=== PATIENT | male | born 1935 | race Caucasian/White ===

== ENCOUNTER 2017-06-29 14:07 | Inpatient (IN) | payer OTHER ==
[~2017-06-29] VITALS: Ht 170.2 cm; Wt 79.8 kg
--- NOTE | 2017-06-29 14:16 | NUR ---
Patient BIBA ACLS, transferred to bed 12. RN evaluating patient at bedside.
[2017-06-29 14:17] VITALS: BP 149/61
--- NOTE | 2017-06-29 14:20 | NUR ---
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 PT IS AOX4, RR ARE EVEN AND UNLABORED. ER MD AWARE OF PT STATUS. NAD AT THIS TIME. WILL CONTINUE TO MONITOR.
[2017-06-29] MEDS ORDERED: APID SUBQ (14:35)
[2017-06-29] MEDS ORDERED: VITA1TAB44 PO (14:35)
[2017-06-29] MEDS ORDERED: TRA200 PO (14:35)
[2017-06-29] MEDS ORDERED: ASPI81CT89 PO (14:35)
[2017-06-29] MEDS ORDERED: ISOS20TA13 PO (14:35)
[2017-06-29] MEDS ORDERED: GABA100C PO (14:35)
[2017-06-29] MEDS ORDERED: SEVE400T PO (14:35)
[2017-06-29] MEDS ORDERED: HYDR100T79 PO (14:35)
[2017-06-29] MEDS ORDERED: PHO667 PO (14:35)
[2017-06-29] MEDS ORDERED: LANTUS SUBQ ×2 (14:35)
[2017-06-29] MEDS ORDERED: PRAV40TA1 PO (14:35)
[2017-06-29] MEDS ORDERED: CLOP75TA26 PO (14:35)
[2017-06-29] MEDS ORDERED: ASPIRIN 325 MG TAB PO ONE (14:50)
[2017-06-29 15:49] LABS: BASOPHILS # (AUTO) 0.1 K/uL (0.00-0.22); BASOPHILS % (AUTO) 1.6 % (0.0-2.0); EOSINOPHILS # (AUTO) 0.1 K/uL (0-0.4); EOSINOPHILS % (AUTO) 1.6 % (0.0-4.0); HEMATOCRIT 30.5 % (36-52); HEMOGLOBIN 9.7 g/dL (12.0-18.0); LYMPHOCYTES # (AUTO) 0.7 K/uL (2.0-11.5); LYMPHOCYTES % (AUTO) 11.6 % (20.5-51.1); MEAN CORPUSCULAR HEMOGLOBIN 34 pg (27-31); MEAN CORPUSCULAR HGB CONC 32 g/dL (33-37); MEAN CORPUSCULAR VOLUME 107 fL (80-94); MONOCYTES # (AUTO) 0.5 K/uL (0.8-1.0); MONOCYTES % (AUTO) 9.2 % (1.7-9.3); NEUTROPHILS # (AUTO) 4.3 K/uL (1.8-7.7); PLATELET COUNT (AUTO) 118 K/uL (140-450); RED BLOOD CELL COUNT(AUTO) 2.86 MIL/uL (4.20-6.10); RED CELL DISTRIBUTION WIDTH 17.1 % (11.6-13.7); WHITE BLOOD COUNT (AUTO) 5.7 K/uL (4.8-10.8)
[2017-06-29 16:11] LABS: ALBUMIN 3.2 g/dL (3.4-5.0); ANION GAP 9.8 (8-16); ASPARTATE AMINOTRANSFERASE 21 U/L (15-37); CARBON DIOXIDE 32.9 mmol/L (21-32); CHLORIDE 102 mmol/L (98-107); GLUCOSE 104 mg/dL (74-106); LIPASE 64 U/L (73-393); POTASSIUM 3.7 mmol/L (3.5-5.1); SODIUM SERUM 141 mmol/L (136-145); TOTAL BILIRUBIN 0.7 mg/dL (0.0-1.0); UREA NITROGEN, BLOOD 27 mg/dL (7-18)
[2017-06-29 16:15] LABS: CREATININE 5.8 mg/dL (0.7-1.3)
--- NOTE | 2017-06-29 16:27 | NUR ---
pt laying supine in [facility] with no complaints. nad. will continue to monitor.
[2017-06-29] MEDS ORDERED: NITROGLYCERIN 0.4 MG TAB SL ONE (16:50)
--- NOTE | 2017-06-29 17:38 | NUR ---
pt denies any cp, with no complaints. pt is aox4, rr are even and unlabored. nad. pt denies any pain at this time.
[2017-06-29 18:02] LABS: CREATINE KINASE MB 2.8 ng/mL (0-3.6)
--- NOTE | 2017-06-29 18:40 | NUR ---
Patient will be admitted to care of Shawn. Admited to Tele. Will go to room 115. Belongings list completed. bedside report to
--- NOTE | 2017-06-29 18:45 | NUR ---
RECEIVED PT FROM ER AT 1835. PLACED PT ON 2L O2 VIA NC. PT DENIES PAIN AT THIS TIME. PT HAS DIALYSIS SHUNT ON LEFT ARM. NO BP SIGN ON LEFT ARM POSTED. PT WAS PUT ON TELE. MRSA SWAB COLLECT. ORIENTED PT TO ROOM. ORDERED DINNER FOR THE PT. VITALS TAKEN, WITHIN NORMAL LIMIT. NO S/S OF DISTRESS NOTED.
--- NOTE | 2017-06-29 19:40 | NUR ---
RECEIVED REPORT FROM DAY SHIFT RN, PATIENT RESTING IN BED EATING DINNER. NO S/S OF DISTRESS NOTED, RESPIRATION EVEN AND UNLABORED, ON O2 NC 2L. IV ON RT AC 20G PATENT AND INTACT, AV SHUNT ON LT FOREARM BRUIT AND THRILL. CALL LIGHT WITHIN REACH, SAFETY MEASURE ENSURED, WILL CONTINUE TO MONITOR.
--- NOTE | 2017-06-29 19:40 | NUR ---
REPORT GIVEN TO [employer] COATING EQUIPMENT TENDER RN. PT IN STABLE CONDITION.
[2017-06-29 20:00] VITALS: BP 160/70
[2017-06-29] MEDS ORDERED: NITROGLYCERIN 0.4 MG TAB SL PRN (22:25)
[2017-06-29] MEDS ORDERED: MORPHINE SULFATE 2 MG/ML SYR IVP PRN (22:25)
--- NOTE | 2017-06-29 22:40 | NUR ---
NO CHANGE IN CONDITION, PATIENT IS SLEEPING, NO S/S OF DISTRESS NOTED, RESPIRATION EVEN AND UNLABORED, CALL LIGHT WITHIN REACH, SAFETY MEASURE ENSURED, WILL CONTINUE TO MONITOR.
[2017-06-29] MEDS ORDERED: INSULIN LISPRO SLIDING SCALE 100 UNITS/ML VIAL SUBQ PRN (23:10)
[2017-06-29] MEDS ORDERED: DEXTROSE 50% 50 ML SYR IVP PRN (23:10)
[2017-06-30] VITALS: BP 148/68
--- NOTE | 2017-06-30 00:04 | NUR ---
TROPONIN 0.230, WILL INFORM DR. MOULTON.
--- NOTE | 2017-06-30 00:12 | NUR ---
NO CHANGE IN CONDITION, VITAL SIGNS STABLE, NO S/S OF DISTRESS NOTED, RESPIRATION EVEN AND UNLABORED, CALL LIGHT WITHIN REACH, SAFETY MEASURE ENSURED, WILL CONTINUE TO MONITOR. Addendum: 06/30/17 at 0247 by Rachel Mitchell RN MADE DR. MOULTON AWARE OF TROPONIN 0.230, NO NEW ORDER RECEIVED AT THIS TIME.
--- NOTE | 2017-06-30 02:35 | NUR ---
PATIENT IS SLEEPING, NO S/S OF DISTRESS NOTED, RESPIRATION EVEN AND UNLABORED, CALL LIGHT WITHIN REACH, SAFETY MEASURE ENSURED, WILL CONTINUE TO MONITOR.
[2017-06-30 03:59] VITALS: BP 153/70
--- NOTE | 2017-06-30 04:05 | NUR ---
PATIENT WAS SLEEPING, NO S/S OF DISTRESS NOTED, RESPIRATION EVEN AND UNLABORED, EASY TO AROUSE, VITAL SIGNS STABLE, CALL LIGHT WITHIN REACH, SAFETY MEASURE ENSURED, WILL CONTINUE TO MONITOR.
--- NOTE | 2017-06-30 06:50 | NUR ---
NOTED PATIENT COUGH INTERMITTENTLY, DR. MOULTON IS AWARE, NO ORDER RECEIVED AT THIS TIME.
[2017-06-30] MEDS: BLOOD GLUCOSE MONITORING 1 DEV DEV FS SCH ×4 (07:10→20:41)
--- NOTE | 2017-06-30 07:12 | NUR ---
ENDORSED PLAN OF CARE TO DAY SHIFT NURSE, PATIENT IS IN STABLE CONDITION.
--- NOTE | 2017-06-30 07:15 | NUR ---
RECEIVED PT IN BED. AWAKE. ALERT ORIENTED X4. NO SOB NOTED. ON 02 AT 2LPM NC. DENIES ANY PAIN OR DISCOMFORT AT THIS TIME. PT AMBULATORY WITH WALKER. SAFETY PRECAUTION IN PLACE. CALL LIGHT WITHIN REACH. DR. MOULTON CAME TO SEE PT.
[2017-06-30 08:00] VITALS: BP 151/70
--- NOTE | 2017-06-30 08:51 | NUR ---
PATIENT HAS BEEN SCREENED AND CATEGORIZED MODERATE NUTRITION RISK. PATIENT WILL BE SEEN WITHIN 3-5 DAYS OF ADMISSION. 07/01/17-07/03/[address]
[2017-06-30] MEDS ORDERED: INSULIN GLARGINE SUBQ SCH ×2 (09:00→21:00)
[2017-06-30] MEDS ORDERED: NON-FORMULARY ITEM (Hydralazine HCl (Hydralazine Hydrochloride) 50 MG) PO SCH (09:00)
[2017-06-30] MEDS ORDERED: NON-FORMULARY ITEM (Pravastatin Sodium* (Pravachol*) 40 MG) PO SCH (09:00)
[2017-06-30] MEDS ORDERED: INSULIN GLULISINE 8 UNIT SUBQ SCH (09:00)
[2017-06-30] MEDS ORDERED: SEVELAMER HCL 800 MG PO SCH (09:00)
--- NOTE | 2017-06-30 09:28 | NUR ---
CALLED DR. MOULTON [phone] MADE AWARE OF LATEST TROPONIN OF 0.228 AND MADE AWARE OF PLATELET RESULT YESTERDAY OF 118 AND THE DUE HEPARIN ORDER FOR 0900 TODAY, PER DR. MOULTON STILL OK TO GIVE LOVENOX ORDERED.
[2017-06-30] MEDS: ISOSORBIDE DINITRATE 20 MG TAB PO SCH (09:35)
[2017-06-30] MEDS: ASPIRIN 325 MG TAB PO SCH (09:35)
[2017-06-30] MEDS: GABAPENTIN 100 MG CAP PO SCH ×3 (09:36→16:32)
[2017-06-30] MEDS: METOPROLOL 25 MG TAB PO SCH ×2 (09:36→20:36)
[2017-06-30] MEDS: hydrALAZINE 25 MG TAB PO SCH (09:36)
[2017-06-30] MEDS: VIT-B COMP/VIT-C/FOLIC ACID 1 TAB PO SCH (09:36)
[2017-06-30] MEDS: CALCIUM ACETATE 667 MG TAB PO SCH ×3 (09:36→16:32)
[2017-06-30] MEDS: ENOXAPARIN 30 MG/0.3 ML SYR SUBQ SCH (09:40)
[2017-06-30] MEDS: INSULIN DETEMIR 100 UNITS/ML 10 ML VIAL SUBQ SCH (09:46)
[2017-06-30 11:34] VITALS: BP 146/73
[2017-06-30] MEDS: SEVELAMER CARBONATE 800 MG TAB PO SCH ×2 (12:21→16:32)
[2017-06-30 15:48] VITALS: BP 132/62
--- NOTE | 2017-06-30 15:51 | NUR ---
RECEIVED A CALL FROM [employer] REGARDING MEDICATION ISORDIL THAT IT SHOULD BE TAKEN BID AND NOT JUST ONCE A DAY PER ORDERED. CLARIFIED WITH PT. PER PT REPORT HE JUST TAKES IT ONCE A DAY. CALLED PHARMACIST SPOKE WITH JE AND MADE AWARE.
[2017-06-30] MEDS: INSULIN LISPRO 100 UNITS/ML VIAL SUBQ SCH (16:38)
--- NOTE | 2017-06-30 19:02 | NUR ---
PT KEPT CLEAN, DRY AND COMFORTABLE. NEEDS ATTENDED. NO SOB NOTED. DENIES ANY PAIN OR DISCOMFORT AT THIS TIME. PT ON STABLE CONDITION. WILL ENDORSE TO NEXT SHIFT. FOR CONTINUITY OF CARE.
--- NOTE | 2017-06-30 19:10 | NUR ---
RECEIVED PT SLEEPING, AROUSABLE BUT LETHARGIC, VERBALLY RESPONSIVE, DENIES ANY PAIN, NO SOB NOTED, DINNER TRAY AT BEDSIDE TABLE, PT NO APPETITE AT THIS TIME, SAFETY MEASURES IN PLACE, CALL LIGHT WITHIN REACH.
--- NOTE | 2017-06-30 19:40 | NUR ---
PT DIAPHORETIC WITH COOL CLAMMY SKIN, AROUSABLE BUT LETHARGIC, BLOOD SUGAR CHECKED WITH 37 RESULT, D50 1 AMP GIVEN IVP, PT MORE AWAKE, STARTED EATING DINNER, ABLE TO CONSUMED 50%, WILL RECHECKED BLOOD SUGAR, GOWN CHANGED AND MADE COMFORTABLE ON BED, VITAL SIGNS STABLE, DENIES PAIN, NO SOB NOTED, ALL NEEDS ATTENDED.
[2017-06-30 20:00] VITALS: BP 148/62
--- NOTE | 2017-06-30 20:45 | NUR ---
BLOOD SUGAR CHECKED WITH 145 RESULT, DUE PO MEDS TAKEN, NO DISTRESS NOTED, MONITORED CLOSELY.
[2017-06-30] MEDS ORDERED: SIMVASTATIN 20 MG TAB PO SCH (21:00)
[2017-06-30] MEDS ORDERED: INSULIN DETEMIR 100 UNITS/ML 10 ML VIAL SUBQ SCH (21:00)
[2017-07-01] VITALS: BP 183/78
--- NOTE | 2017-07-01 | NUR ---
PT SLEEPING, EASILY AROUSABLE, VITAL SIGNS TAKEN, BP ELEVATED, ASYMPTOMATIC, DENIES CHEST PAIN, NO SOB NOTED, PAGED DR MOULTON, WITH NEW ORDER TO GIVE NORVASC 5MG PO ONCE, WILL CARRY OUT, CONTINUE TO MONITOR CLOSELY.
[2017-07-01] MEDS ORDERED: amLODIPine 5 MG TAB PO SCH ×2 (00:10→23:55)
[2017-07-01 04:00] VITALS: BP 165/68
--- NOTE | 2017-07-01 04:00 | NUR ---
PT SLEEPING, EASILY AROUSABLE, VITAL SIGNS TAKEN, BP ELEVATED BUT TRENDING DOWN, ASYMPTOMATIC, DENIES CHEST PAIN, NO SOB NOTED, MONITORED CLOSELY.
--- NOTE | 2017-07-01 05:50 | NUR ---
BLOOD SUGAR CHECKED WITH 120 RESULT, MONITORED CLOSELY.
[2017-07-01] MEDS: BLOOD GLUCOSE MONITORING 1 DEV DEV FS SCH (06:31)
--- NOTE | 2017-07-01 07:10 | NUR ---
PT SLEEPING, NO SIGNS OF DISTRESS, REPORT GIVEN TO MARSHA MAHER FOR CONTINUITY OF CARE.
--- NOTE | 2017-07-01 07:28 | NUR ---
RECEIVED PT IN BED. ASLEEP. AROUSABLE TO VOICE/TOUCH. ALERT ORIENTED X4. NO SOB NOTED. DENIES ANY PAIN OR DISCOMFORT AT THIS ITNME Addendum: 07/01/17 at 0743 by Bee Salcedo RN RECEIVED PT IN BED. ASLEEP. AROUSABLE TO VOICE/TOUCH. ALERT ORIENTED X4. NO SOB NOTED. ON O2 AT 2LPM NC. DENIES ANY PAIN OR DISCOMFORT AT THIS TIME. PT ON BEDREST. SAFETY PRECAUTION IN PLACE. CALL LIGHT WITHIN REACH.
[2017-07-01] MEDS: INSULIN LISPRO 100 UNITS/ML VIAL SUBQ SCH (07:30)
--- NOTE | 2017-07-01 07:30 | NUR ---
BLOOD SUGAR CHECKED WITH 115MG/DL RESULT. HELD SCHEDULED HUMALOG 5 U. DUE TO PT'S BLOOD SUGAR GOING DOWN.
[2017-07-01 08:00] VITALS: BP 154/64
[2017-07-01] MEDS: GABAPENTIN 100 MG CAP PO SCH (08:58)
[2017-07-01] MEDS: SEVELAMER CARBONATE 800 MG TAB PO SCH (08:58)
[2017-07-01] MEDS: ASPIRIN 325 MG TAB PO SCH (08:58)
[2017-07-01] MEDS: VIT-B COMP/VIT-C/FOLIC ACID 1 TAB PO SCH (08:58)
[2017-07-01] MEDS: hydrALAZINE 25 MG TAB PO SCH (08:59)
[2017-07-01] MEDS: CALCIUM ACETATE 667 MG TAB PO SCH (08:59)
[2017-07-01] MEDS: ISOSORBIDE DINITRATE 20 MG TAB PO SCH (08:59)
[2017-07-01] MEDS: METOPROLOL 25 MG TAB PO SCH (08:59)
[2017-07-01] MEDS: ENOXAPARIN 30 MG/0.3 ML SYR SUBQ SCH (09:01)
[2017-07-01] MEDS: INSULIN DETEMIR 100 UNITS/ML 10 ML VIAL SUBQ SCH (09:01)
[2017-07-01 10:01] VITALS: BP 139/76
--- NOTE | 2017-07-01 10:37 | NUR ---
DISCHARGE INSTRUCTIONS AND HEALTH TEACHINGS GIVEN AND EXPLAINED TO PT. PT VERBALIZED UNDERTAND. PT VERBALIZED THAT HE WILL GO FOR HIS SCHEDULED DIALYSIS FOR TODAY AT 1130. PT SIGNED DISCHARGE PAPERS. REMINDED PT TO FOLLOW UP WITH PCP WITH 1-2 WKS AND FOLLOW UP WITH VOICE TEACHER BRITNEY. IV CANNULA REMOVED AND INTACT. NAME ARMBAND REMOVED. TELE MONITOR REMOVED. PT CALL FAMILY TO PICK HIM UP. AWAITING FAMILY MEMBER. NO SOB NOTED. DENIES ANY PAIN OR DISCOMFORT AT THIS TIME.
--- NOTE | 2017-07-01 10:55 | NUR ---
PT WHEELED OUT GOING TO THE HOSPITAL PARKING LOT, WITH FAMILY. NO SOB NOTED. DENIES ANY PAIN OR DISCOMFORT AT THIS TIME. PT DISCHARGED ON STABLE CONDITION.
== END 2017-07-01 10:55 | disposition home or self-care (01) | DRG 391 ==
LOC: MED 14:07 → MTU 17:34
PROVIDERS: ADMIT Family Medicine; ATTEND Family Medicine
DX: K21.9 Gastro-esophageal reflux disease without esophagitis (principal); N18.6 End stage renal disease; E11.22 Type 2 diabetes mellitus with diabetic chronic kidney disease; I12.0 Hypertensive chronic kidney disease with stage 5 chronic kidney disease or end stage renal disease; D69.6 Thrombocytopenia, unspecified; E44.1 Mild protein-calorie malnutrition; I25.10 Atherosclerotic heart disease of native coronary artery without angina pectoris; E78.5 Hyperlipidemia, unspecified; D64.9 Anemia, unspecified; J06.9 Acute upper respiratory infection, unspecified; Z79.4 Long term (current) use of insulin; Z99.2 Dependence on renal dialysis; Z87.891 Personal history of nicotine dependence; Z83.3 Family history of diabetes mellitus; Z68.27 Body mass index [BMI] 27.0-27.9, adult; Z95.0 Presence of cardiac pacemaker
CPT/HCPCS: 36415; 36600; 71045; 80053; 82550; 82553; 82803; 82948; 83690; 84100; 84484; 85025; 87081; 93005; 99285; J1650; J1815; J7030